=== PATIENT | male | born 1990 | race Caucasian/White ===

== ENCOUNTER 2017-04-17 15:43 | Emergency (ER) | payer OTHER, BC ==
[2017-04-17 15:50] VITALS: BP 129/87; PULSE 60; TEMP 98.1; BMI 26.5
--- NOTE | 2017-04-17 15:58 | PDOC ---
History of Present Illness - General History Source: Patient, Old Records Exam Limitations: No Limitations <Dahlia Sharpe - Last Filed: 04/17/17 16:44> - General History Source: Patient Exam Limitations: No Limitations - History of Present Illness Initial Comments: 04/17/17 15:59 The patient is a 26 year old, right hand dominant, male with no past medical history who presents to the ED with complaints of right pinky injury that occurred today while at work. The patient states he works for [employer] when he got his pinky caught in the garbage truck earlier today. The patient complains of localized pain to his right pinky and hand without any numbness or tingling. He denies any modifying factors or taking anything for the pain. The patient denies any other injury or complaints. He denies any recent illness or fevers. <Tori Nichole - Last Filed: 04/17/17 16:48> - General Chief Complaint: Pain, Acute Stated Complaint: RIGHT 5TH FINGER PAIN Time Seen by Provider: 04/17/17 15:44 Past History - Past Medical History Anemia: No Asthma: Yes Cancer: No Cardiac Disorders: No CVA: No COPD: No CHF: No Dementia: No Diabetes: No GI Disorders: No Disorders: No HTN: No Hypercholesterolemia: No Liver Disease: No Seizures: No Thyroid Disease: No - Surgical History Abdominal Surgery: No Appendectomy: No Cardiac Surgery: No Cholecystectomy: No Lung Surgery: No Neurologic Surgery: No Orthopedic Surgery: No - Psycho/Social/Smoking Cessation Hx Anxiety: No Suicidal Ideation: No Smoking Status: No Smoking History: Never smoked Have you smoked in the past 12 months: No Number of Cigarettes Smoked Daily: 0 Hx Alcohol Use: Yes Drug/Substance Use Hx: No Substance Use Type: None Hx Substance Use Treatment: No <Dahlia Sharpe - Last Filed: 04/17/17 16:44> <Tori Nichole - Last Filed: 04/17/17 16:48> - Past Medical History Allergies/Adverse Reactions: Allergies Allergy/AdvReac Type Severity Reaction Status Date / Time aspirin Allergy Mild Verified 04/17/17 15:44 [From Aspirin Regimen [place]/Calcium] calcium carbonate Allergy Mild Verified 04/17/17 15:44 [From Aspirin Regimen [place]/Calcium] ibuprofen Allergy Mild Hives Verified 04/17/17 15:44 Home Medications: Ambulatory Orders NK [No Known Home Medication] 04/17/17 Review of Systems - Review of Systems Able to Perform ROS?: Yes Comments:: 04/17/17 16:00 GENERAL/CONSTITUTIONAL: No fever or chills. No weakness. HEAD, EYES, EARS, NOSE AND THROAT: No change in vision. No ear pain or discharge. No sore throat. CARDIOVASCULAR: No chest pain or shortness of breath. RESPIRATORY: No cough, wheezing, or hemoptysis. GASTROINTESTINAL: No nausea, vomiting, diarrhea or constipation. GENITOURINARY: No dysuria, frequency, or change in urination. MUSCULOSKELETAL: Present: right hand and 5th digit pain No neck or back pain. SKIN: No rash NEUROLOGIC: No headache, vertigo, loss of consciousness, or change in strength/ sensation. ENDOCRINE: No increased thirst. No abnormal weight change. HEMATOLOGIC/LYMPHATIC: No anemia, easy bleeding, or history of blood clots. ALLERGIC/IMMUNOLOGIC: No hives or skin allergy. All Other Systems: Reviewed and Negative <Tori Nichole - Last Filed: 04/17/17 16:48> *Physical Exam - Vital Signs Last Vital Signs Temp Pulse Resp BP Pulse Ox 98.1 F 60 18 129/87 100 04/17/17 15:43 04/17/17 15:43 04/17/17 15:43 04/17/17 15:43 04/17/17 15:43 <Dahlia Sharpe - Last Filed: 04/17/17 16:44> - Vital Signs Last Vital Signs Temp Pulse Resp BP Pulse Ox 98.1 F 60 18 129/87 100 04/17/17 15:43 04/17/17 15:43 04/17/17 15:43 04/17/17 15:43 04/17/17 15:43 - Physical Exam Comments: 04/17/17 16:01 GENERAL: Awake, alert, and fully oriented, in no acute distress HEAD: No signs of trauma EYES: PERRLA, EOMI, sclera anicteric, conjunctiva clear ENT: Auricles normal inspection, hearing grossly normal, nares patent, oropharynx clear without exudates. Moist mucosa NECK: Normal ROM, supple, no lymphadenopathy, JVD, or masses LUNGS: Breath sounds equal, clear to auscultation bilaterally. No wheezes, and no crackles HEART: Regular rate and rhythm, normal S1 and S2, no murmurs, rubs or gallops ABDOMEN: Soft, nontender, normoactive bowel sounds. No guarding, no rebound. No masses EXTREMITIES: Right hand: Tenderness at the 5th MCP, and proximal phalanx, neurovascularly intact, no bony deformity, full ROM Normal range of motion, no edema. No clubbing or cyanosis. No cords, erythema NEUROLOGICAL: Cranial nerves II through XII grossly intact. Normal speech, normal gait SKIN: Warm, Dry, normal turgor, no rashes or lesions noted. <shawnTori - Last Filed: 04/17/17 16:48> ED Treatment Course - RADIOLOGY Radiology Studies Ordered: Category Date Time Status HAND- RIGHT [RAD] Stat Radiology 04/17/17 15:56 Ordered <Dahlia Sharpe - Last Filed: 04/17/17 16:44> - RADIOLOGY Radiograph Interpretation: 04/17/17 16:48 Right hand X-ray as reviewed by Dr. Reagan reports no fracture. <shawnTori - Last Filed: 04/17/17 16:48> Medical Decision Making - Medical Decision Making 04/17/17 15:57 26-year-old right-hand dominant male presents the emergency department with pain to the right fifth digit and hand after a crush injury while at work earlier today. Differential diagnosis includes but is not limited to: Fracture, contusion, sprain. Plan: 1. Plain film of right hand 2. Pain management 3. Observe and reevaluate 04/17/17 16:44 Addendum: plain film is nbegative for fx and dislocation. Will discharge home , follow-up with PCP prn and RTED if Sx persist, worsen or new Sx arise. <Dahlia Sharpe - Last Filed: 04/17/17 16:44> *DC/Admit/Observation/Transfer - Discharge Dispostion Admit: No - Attestations Physician Attestion: 04/17/17 15:58 I, Dr. Dahlia Sharpe, attest that the scribes documentation that appears above has been prepared under my direction and personally reviewed by me in its entirety. I confirmed that the note above accurately reflects all work, treatment, procedures, and medical decision-making performed by me. <Dahlia Sharpe - Last Filed: 04/17/17 16:44> - Attestations Scribe Attestion: 04/17/17 16:03 Documentation prepared by Tori Nichole, acting as biomedical equipment support specialist for Dahlia Sharpe MD. <Tori Nichole - Last Filed: 04/17/17 16:48> Diagnosis at time of Disposition: Contusion of hand, right - Discharge Dispostion Condition at time of disposition: Stable - Patient Instructions Printed Discharge Instructions: DI for Contusion Additional Instructions: Ice to the area that hurts. Ibuprofen 600-800mg every 6-8 hours as needed for pain. Follow-up with PCP and return to the ED if your symptoms persist, worsen or new symptoms arise.
== END 2017-04-17 16:50 | disposition home or self-care (01) ==
LOC: FER 15:43
DX: S60.221A Contusion of right hand, initial encounter (principal); W20.8XXA Other cause of strike by thrown, projected or falling object, initial encounter; Y93.89 Activity, other specified; Y92.9 Unspecified place or not applicable; Y99.0 Civilian activity done for income or pay; J45.909 Unspecified asthma, uncomplicated
CPT/HCPCS: 73130-TC-RT; 99281-25

== ENCOUNTER 2018-11-02 19:59 | Emergency (ER) | payer OTHER, BC ==
[2018-11-02 20:16] VITALS: BP 128/80; PULSE 80; TEMP 97.7; BMI 26.5
[2018-11-02] MEDS ORDERED: FLUORESCEIN NA 1 EA STRIP OU ONE (20:20)
[2018-11-02] MEDS ORDERED: TETRACAINE 0.5% OPHTH SOLN 2 ML BOTTLE OU ONE (20:21)
[2018-11-02] MEDS ORDERED: TETRACAINE 0.5% OPHTH SOLN 2 ML BOTTLE ONE (20:23)
[2018-11-02] MEDS ORDERED: FLUORESCEIN NA 1 EA STRIP ONE (20:23)
--- NOTE | 2018-11-02 20:38 | PDOC ---
History of Present Illness - General Chief Complaint: Foreign Body (FB) Stated Complaint: GROUT ON LEFT EYE Time Seen by Provider: 11/02/18 20:01 - History of Present Illness Initial Comments: 11/03/18 04:45 The patient is a 28 year old male, with a significant PMH of asthma as a child who presents to the emergency department complaining of bilateral eye irritation after grout splashed in his eyes while mixing it. The patient states the pain is worse in the left eye. He notes that it feels as if there is something in his eyes. Reports flushing his eyes with water for a few mins prior to arrival. Denies photophobia. The patient denies chest pain, shortness of breath, headache and dizziness. Denies fever, chills, nausea, vomit, diarrhea and constipation. Denies dysuria, frequency, urgency and hematuria. Allergies: aspirin, calcium carbonate, ibuprofen Past History - Past Medical History Allergies/Adverse Reactions: Allergies Allergy/AdvReac Type Severity Reaction Status Date / Time aspirin Allergy Mild Verified 04/17/17 15:44 [From Aspirin Regimen [place]/Calcium] calcium carbonate Allergy Mild Verified 04/17/17 15:44 [From Aspirin Regimen [place]/Calcium] ibuprofen Allergy Mild Hives Verified 04/17/17 15:44 Home Medications: Ambulatory Orders Polymyxin B Sulfate/Tmp [Polytrim Opthalmic Solution -] 2 drop OP Q4H #1 bottle 11/02/18 Anemia: No Asthma: Yes Cancer: No Cardiac Disorders: No CVA: No COPD: No CHF: No Dementia: No Diabetes: No GI Disorders: No Disorders: No HTN: No Hypercholesterolemia: No Liver Disease: No Seizures: No Thyroid Disease: No - Surgical History Abdominal Surgery: No Appendectomy: No Cardiac Surgery: No Cholecystectomy: No Lung Surgery: No Neurologic Surgery: No Orthopedic Surgery: No - Suicide/Smoking/Psychosocial Hx Smoking Status: No Smoking History: Never smoked Have you smoked in the past 12 months: No Number of Cigarettes Smoked Daily: 0 Hx Alcohol Use: Yes Drug/Substance Use Hx: No Substance Use Type: None Hx Substance Use Treatment: No Review of Systems - Review of Systems Comments:: 11/02/18 20:38 GENERAL/CONSTITUTIONAL: No fever or chills. No weakness. HEAD, EYES, EARS, NOSE AND THROAT: +eye irritation. No ear pain or discharge. No sore throat. GASTROINTESTINAL: No nausea, vomiting, diarrhea or constipation. GENITOURINARY: No dysuria, frequency, or change in urination. CARDIOVASCULAR: No chest pain or shortness of breath. RESPIRATORY: No cough, wheezing, or hemoptysis. MUSCULOSKELETAL: No joint or muscle swelling or pain. No neck or back pain. SKIN: No rash NEUROLOGIC: No headache, vertigo, loss of consciousness, or change in strength/ sensation. ENDOCRINE: No increased thirst. No abnormal weight change. HEMATOLOGIC/LYMPHATIC: No anemia, easy bleeding, or history of blood clots. ALLERGIC/IMMUNOLOGIC: No hives or skin allergy. *Physical Exam - Vital Signs Last Vital Signs Temp Pulse Resp BP Pulse Ox 97.7 F 80 16 128/80 98 11/02/18 20:00 11/02/18 20:00 11/02/18 20:00 11/02/18 20:00 11/02/18 20:00 - Physical Exam Comments: 11/02/18 20:41 GENERAL: Awake, alert, and fully oriented, in no acute distress HEAD: No signs of trauma EYES: PERRLA, EOMI, sclera anicteric, conjunctiva mildly injected L>R. OD 20/15 , OS 20/20 VA. No visualized FB with ophthalmoscope. Negative corneal abrasion b /l with fluorecein testing. ENT: Oropharynx clear without exudates. Moist mucosa LUNGS: Breath sounds equal, clear to auscultation bilaterally. No wheezes, and no crackles HEART: Regular rate and rhythm, normal S1 and S2, no murmurs, rubs or gallops ABDOMEN: Soft, nontender, normoactive bowel sounds. No guarding, no rebound. No masses EXTREMITIES: Normal range of motion, no edema. No cords, erythema, or tenderness NEUROLOGICAL: Normal speech, cranial nerves intact, equal strength and sensation, normal gait SKIN: Warm, Dry, normal turgor, no rashes or lesions noted. Moderate Sedation - Procedure Monitoring Vital Signs: Procedure Monitoring Vital Signs Temperature 97.7 F 11/02/18 20:00 Pulse Rate 80 11/02/18 20:00 Respiratory Rate 16 11/02/18 20:00 Blood Pressure 128/80 11/02/18 20:00 O2 Sat by Pulse Oximetry (%) 98 11/02/18 20:00 ED Treatment Course - Medications Given in the ED: ED Medications Discontinued Medications Generic Name Dose Route Start Last Admin Trade Name Kylie PRN Reason Stop Dose Admin Fluorescein Sodium 1 ea 11/02/18 20:20 11/02/18 20:26 Fluorets - OU 11/02/18 20:21 1 ea ONCE ONE Administration Tetracaine HCl 1 drop 11/02/18 20:21 11/02/18 20:26 Pontocaine OU 11/02/18 20:22 1 applic ONCE ONE Administration Medical Decision Making - Medical Decision Making 11/02/18 20:43 28yo M hx childhood asthma presents to the ED with FB sensation and eye irritation L>R after splashing grout into his eyes. Pt flushed eyes [employer]. Eye exam with just conjunctival irrtation L>R, normal VA, no corneal abrasions with fluorescein testing using diaz lamp. Pt flushed eye in ED for ~10 mins, feels much better and requests DC home. Will prescribe polytrim drops in case we were unable to visualize abrasions with diaz lamp and refer pt to ophtho. I discussed the physical exam findings, ancillary test results and final diagnoses with the patient. I answered all of the patient's questions. The patient was satisfied with the care received and felt comfortable with the discharge plan and treatment plan. The patient will call their primary care physician within 24 hours to arrange follow-up and will return to the Emergency Department with any new, persistent or worsening symptoms. *DC/Admit/Observation/Transfer Diagnosis at time of Disposition: Eye irritation, Sensation of foreign body in eye, Conjunctival injection - Discharge Dispostion Disposition: HOME Condition at time of disposition: Good Decision to Admit order: No - Prescriptions Prescriptions: Polymyxin B Sulfate/Tmp [Polytrim Opthalmic Solution -] 2 drop OP Q4H #1 bottle - Referrals Referrals: Cas Bush MD [Staff Physician] - - Patient Instructions Additional Instructions: Use the eye drops as prescribed Follow up with Dr. Bush (ophthalmology) within 1-2 days Return to the emergency department if you have any new, worsening, or concerning symptoms - Post Discharge Activity - Attestations Physician Attestion: 11/02/18 20:51 I, Dr. Melquiades Irene MD, attest that this document has been prepared under my direction and personally reviewed by me in its entirety. I further attest, that it accurately reflects all work, treatment, procedures and medical decision -making performed by me.
== END 2018-11-02 21:19 | disposition home or self-care (01) ==
LOC: FER 19:59
DX: H11.89 Other specified disorders of conjunctiva (principal); H57.89 Other specified disorders of eye and adnexa
CPT/HCPCS: 99281-25

== ENCOUNTER 2019-02-21 14:40 | Emergency (ER) | payer OTHER, BC | END 2019-02-21 15:59 | disposition home or self-care (01) | LOC: FER 14:40 ==

== ENCOUNTER 2024-02-15 13:50 | Emergency (ER) | payer BC, OTHER ==
[2024-02-15 14:05] VITALS: BP 140/79; PULSE 82; RESP 18; TEMP 98.1; BMI 27.3
== END 2024-02-15 15:22 | disposition home or self-care (01) ==
LOC: FER 13:50
DX: K59.00 Constipation, unspecified (principal); R10.9 Unspecified abdominal pain
CPT/HCPCS: 74018-TC-FY

== ENCOUNTER 2024-03-25 12:16 | Emergency (ER) | payer BC ==
[2024-03-25 12:25] VITALS: BP 117/65; PULSE 64; RESP 18; TEMP 98; BMI 28.1
[2024-03-25] MEDS ORDERED: ACETAMINOPHEN 325 MG TABLET (FP) ONE (13:09)
[2024-03-25] MEDS: ACETAMINOPHEN 325 MG TABLET (FP) PO ONE (13:10)
== END 2024-03-25 13:16 | disposition home or self-care (01) ==
LOC: FER 12:16
DX: R51.9 Headache, unspecified (principal); R11.0 Nausea
CPT/HCPCS: 99283-25